=== PATIENT | female | born 1965 | race Caucasian/White ===

== ENCOUNTER 2016-09-27 19:19 | Emergency (ER) | payer BC ==
[~2016-09-27] VITALS: Ht 175.3 cm; Wt 95.3 kg
[2016-09-27 19:57] VITALS: BP 150/82
[2016-09-27] MEDS ORDERED: HYDROcodone/APAP 5/325MG 1 TAB TABLET PO ONE (20:00)
[2016-09-27] MEDS ORDERED: HYDR-2758 PO (20:29)
--- NOTE | 2016-09-27 20:30 | PHYS DOC ---
Past Medical History Past Medical History: Anxiety, Arthritis, Depression Past Surgical History: Other Additional Past Surgical Histo: Right rotator cuff Alcohol Use: None Drug Use: None Adult General Chief Complaint Chief Complaint: UPPER EXTREMITY INJURY HPI HPI Patient is a 51 year old female who presents with for left shoulder pain after mechanical fall. She had a trip and fall epigastric tenderness, falling and hitting her anterior shoulder against the corner of a concrete surface. She denies head injury or loss of consciousness. She has pain that is constant, worse with range of motion, radiating through her left neck. She denies back pain, numbness, tingling, weakness, dizziness, nausea or vomiting, vision changes, dyspnea, abdominal pain. EMS evaluated her and placed her in a sling prehospital. Review of Systems Review of Systems Constitutional: Denies fever or chills [] Eyes: Denies change in visual acuity, redness, or eye pain [] HENT: Denies nasal congestion or sore throat [] Respiratory: Denies cough or shortness of breath [] Cardiovascular: No additional information not addressed in HPI [] GI: Denies abdominal pain, nausea, vomiting, bloody stools or diarrhea [] : Denies dysuria or hematuria [] Musculoskeletal: Denies back pain [] Integument: Denies rash or skin lesions [] Neurologic: Denies headache, focal weakness or sensory changes [] Endocrine: Denies polyuria or polydipsia [] Current Medications Current Medications Current Medications Medications (Trade) Dose Ordered Sig/Paola Start Time Stop Time Status Last Admin Dose Admin Acetaminophen/ Hydrocodone Bitart (Lortab 5/325) 2 tab 1X ONCE 09/27/16 20:00 09/27/16 20:01 DC 09/27/16 20:00 2 TAB Allergies Allergies Allergies Coded Allergies Type Severity Reaction Last Updated Verified nitrofurantoin Allergy Intermediate 09/27/16 Yes Physical Exam Physical Exam Constitutional: Well developed, well nourished, no acute distress, non-toxic appearance. [] HENT: Normocephalic, atraumatic, bilateral external ears normal, oropharynx moist, nose normal. [] Eyes: PERRLA, EOMI. [] Neck: Normal range of motion, no midline spinal tenderness, supple. Has some left trapezius muscle tenderness with no visual or palpable abnormality. [] Cardiovascular:Heart rate regular rhythm [] Lungs & Thorax: Bilateral breath sounds clear to auscultation [] Abdomen: Bowel sounds normal, soft, no tenderness. [] Skin: Warm, dry, no erythema, no rash. [] Back: No tenderness, no CVA tenderness. [] Extremities: LUE with no obvious deformity or discoloration; has tenderness about shoulder in general; no scapula or clavicle tenderness; Full ROM of elbow/ wrist/hand; Can pronate/supinate; Shoulder ROM limited due to pain; Can make fist/ok sign/thumb up/finger cross and spread; Can flex/ex wrist; Good radial pulse and brisk cap refill equal bilaterally; sensation intact to light touch m/ u/r/ax nerves Neurologic: Alert and oriented X 3, normal motor function, normal sensory function, no focal deficits noted. [] Psychologic: Affect normal, judgement normal, mood normal. [] Current Patient Data Vital Signs Vital Signs Date Time Temp Pulse Resp B/P (MAP) Pulse Ox O2 Delivery O2 Flow Rate FiO2 09/27/16 19:57 98.7 67 18 98 Room Air 98.7 Radiology/Procedures Radiology/Procedures Left shoulder x-rays interpreted by me as no acute fracture or dislocation Course & Med Decision Making Course & Med Decision Making Pertinent Labs and Imaging studies reviewed. (See chart for details) After XR, tested shoulder ROM; she has limited active ROM, but full passive ROM of shoulder. Discussed symptom management and need for follow up. Return precautions given. She understands and agrees with plan. Dragon Disclaimer Dragon Disclaimer This electronic medical record was generated, in whole or in part, using a voice recognition dictation system. Departure Departure Impression: Primary Impression: Left shoulder pain Disposition: 01 HOME, SELF-CARE Condition: STABLE Referrals: PENNY NARVAEZ MD (PCP) Patient Instructions: Shoulder Pain, [id number] Additional Instructions: Take Tylenol or ibuprofen as needed for moderate pain. Take hydrocodone as needed for severe pain. Do not drink, drive or operate heavy machinery after taking hydrocodone as it may make you sleepy. Follow-up with your primary care doctor. Return for any concerns. Scripts Hydrocodone Bit/Acetaminophen (HYDROCODONE-APAP 5-325 ) 1 Each Tablet 1-2 TAB PO PRN Q6HRS Y for PAIN, #10 TAB 0 Refills Prov: Leisa JAMES MD 09/27/16 Problem Qualifiers Primary Impression: Left shoulder pain Chronicity: acute Qualified Codes: M25.512 - Pain in left shoulder Leisa JAMES MD Sep 27, 2016 20:30
--- NOTE | 2016-09-28 09:21 | RAD ---
Indication injury, fall, pain. Internally and externally rotated views of the left shoulder as well as a Y view were obtained. No fracture or acute bony finding is seen. There is some very minimal degenerative changes at the AC joint
== END 2016-09-27 20:30 | disposition home or self-care (01) ==
LOC: ER 19:19
DX: M25.512 Pain in left shoulder (principal); R10.13 Epigastric pain; M54.2 Cervicalgia; M19.90 Unspecified osteoarthritis, unspecified site; Z98.890 Other specified postprocedural states; Z88.8 Allergy status to other drugs, medicaments and biological substances; W01.198A Fall on same level from slipping, tripping and stumbling with subsequent striking against other object, initial encounter; Y93.89 Activity, other specified; Y99.8 Other external cause status; Y92.89 Other specified places as the place of occurrence of the external cause
CPT/HCPCS: 73030; 99284

== ENCOUNTER → 2016-10-03 | Outpatient (CLI) | payer BC ==
[2016-09-27 19:57] VITALS: BP 150/82
[~2016-10-03] MED LIST: HYDR-2758 PO
--- NOTE | 2016-10-03 12:21 | KCIC ---
MR of the left shoulder Indication: Injury 4 days ago after a fall. Pain and diminished range of motion. Technique: Standard multiplanar sequences are obtained. Findings: Acromioclavicular joint: Mild degenerative with undersurface osteophytes. Rotator cuff: Complete full-thickness rupture of the supraspinatus and infraspinatus tendons with 3.5 cm retraction and mild muscle volume loss. Mild fluid in the subdeltoid bursa. Acute intramuscular supraspinatus and infraspinatus edema compatible with an acute component of injury. Subscapularis tendinosis without measurable tear. Mild strain or edema within the infraspinatus muscle without tendon tear. Fluid: Small glenohumeral joint effusion. Labrum: Tear of the posterosuperior labrum. Articular cartilage: No acute cartilage defect or advanced DJD. Biceps tendon: Mild tendinosis Bones: No lesion or acute fracture. Soft tissue: Mild fluid/hemorrhage tracking around shoulder musculature. Impression: 1. Complete full-thickness retracted rupture of supraspinatus and infraspinatus tendons, with acute component. 2. Posterosuperior labral tear. 3. Biceps tendinosis. Electronically signed by: Antonio Turcios MD (10/03/2016 12:18 PM)
== END | disposition home or self-care (01) ==
LOC: KCIC MRI 09:05
PROVIDERS: ATTEND Physician Assistant
DX: S49.92XA Unspecified injury of left shoulder and upper arm, initial encounter (principal); X58.XXXA Exposure to other specified factors, initial encounter; Y93.89 Activity, other specified; Y92.89 Other specified places as the place of occurrence of the external cause; Y99.8 Other external cause status
CPT/HCPCS: 73221

== ENCOUNTER → 2018-03-28 | Outpatient (CLI) | payer OTHER ==
[~2018-03-28] MED LIST changes: -HYDR-2758 PO; +HYDR-2761 PO
--- NOTE | 2018-04-05 18:25 | KCIC ---
Bilateral digital screening mammograms: Reason for examination: Routine screening. Comparison is made to previous studies dated 07/13/2016 and 07/02/2013. Interpretation is made with the benefit of CAD. The skin and nipples show no abnormalities. No abnormal lymph nodes are seen. The breast parenchyma is predominantly fatty. (Breast density: Category A.) There are no dominant masses, suspicious calcifications or architectural distortions. Impression: No evidence of malignancy. Recommend routine screening. BI-RADS Category 1: Negative. "Our facility is accredited by the [employer] Mammography [employer]." This patient's information has been entered into a reminder system for the patient to be notified with the results of her examination and a target date for the next mammogram. Electronically signed by: Apoorva Rodriguez MD (04/05/2018 6:21 PM) [id number]
== END | disposition home or self-care (01) ==
LOC: KCIC MAMMO 11:22
PROVIDERS: ATTEND Family Medicine
DX: Z12.31 Encounter for screening mammogram for malignant neoplasm of breast (principal)
CPT/HCPCS: 77067